=== PATIENT | male | born 1940 | race Caucasian/White ===

== ENCOUNTER 2020-06-13 08:35 | Outpatient (CLI) | payer MEDICARE, SELFPAY ==
--- NOTE | ~2020-06-13 | XR_ITS ---
EXAMINATION: XR foot LT 2V, XR foot RT min 3V DATE: 06/13/2020 09:45 INDICATION: Rheumatoid arthritis TECHNIQUE: 1. Dorsoplantar and lateral views of the left foot were obtained. 2. Dorsoplantar, 2 oblique and lateral views of the right foot were obtained. COMPARISON: None. FINDINGS: 30 degree hallux valgus at the left foot and 40 degree right hallux valgus. Bunions with hypertrophic and mild cystic change at the medial heads of both the left and right first metatarsals. Polyarticul ar osteoarthritis characterized by nonuniform joint space narrowing and/or marginal osteophytes which is of moderate severity at the bilateral first metatarsophalangeal, right fifth metatarsophalangeal joints and several of the bilateral interphalangeal joints. Additional mild polyarticular osteoarthri tis at many of the remaining joints in the bilateral mid and forefeet. No cortical erosions to sugges t inflammatory arthritis such as rheumatoid. Small left Achilles calcaneal spur. IMPRESSION: 1. Bilateral hallux valgus with bunions. 2. 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 Reviewed, dictated and finalized at location A. PLASTIC SURGERY IMPRESSION: 1. Bilateral hallux valgus with bunions. 2. 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
--- NOTE | ~2020-06-13 | XR_ITS ---
EXAMINATION: XR hand LT 2V DATE: 06/13/2020 09:45 INDICATION: Rheumatoid arthritis, unspecified. TECHNIQUE: 3 views of left hand were obtained. COMPARISON: None. FINDINGS: There is flexion of the metacarpophalangeal joints on all views. There is hyperextension of fourth and fifth proximal interphalangeal joints. There is severe osteoarthritis of distal radioulna r joint. Distal ulna abuts lunate, consistent with ulnolunate abutment syndrome. There is severe oste oarthritis of lunate-capitate joint. There is mild osteoarthritis of triscaphe joint and first carpom etacarpal joint. There is mild osteoarthritis of many of the metacarpophalangeal joints and interphal angeal joints. There are no bone erosions. IMPRESSION: 1. Hyperextension of the fourth and fifth proximal interphalangeal joints. 2. Polyarticular osteoarthritis. Reviewed, dictated and finalized at location A. [employer]
--- NOTE | ~2020-06-13 | XR_ITS ---
EXAMINATION: XR hand RT min 3V DATE: 06/13/2020 09:45 INDICATION: Rheumatoid arthritis, unspecified, contracted joints. TECHNIQUE: 3 views of right hand were obtained. COMPARISON: None. FINDINGS: There is hyperextension of fourth and fifth distal interphalangeal joints with flexion of t he proximal interphalangeal joints (boutonniere deformities). No fracture. There is mild osteoarthrit is of distal radioulnar joint and some of the metacarpophalangeal joints and interphalangeal joints. There is moderate osteoarthritis of second distal interphalangeal joint and severe osteoarthritis of third distal interphalangeal joint. Bone erosions are not identified. IMPRESSION: 1. 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 2. Polyarticular osteoarthritis. Reviewed, dictated and finalized at location A. 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
[2020-06-13 09:22] LABS: Basophils Absolute Auto 0.1 K/mm3 (0.0-0.1); Basophils Percent Auto 0.7 % (0.2-1.2); Eosinophils Absolute Auto 0.3 K/mm3 (0-0.3); Eosinophils Percent Auto 3.5 % (0-4.4); Hematocrit 43.3 % (42.0-52.0); Hemoglobin 14.6 g/dL (14.0-18.0); Immature Granulocyte Absolute 0.01 K/mm3 (0.00-0.031); Immature Granulocyte Percent A 0.1 % (0-0.5); Lymphocytes Absolute Auto 2.76 K/mm3 (0.9-3.2); Lymphocytes Percent Auto 37.1 % (18.3-44.2); Mean Corpuscular HGB Conc 33.7 g/dl (32-36); Mean Corpuscular Hemoglobin 34.4 pg (26-34); Mean Corpuscular Volume 102.1 fl (80-100); Mean Platelet Volume 10.9 fl (7.4-10.4); Monocytes Absolute Auto 0.6 K/mm3 (0.1-0.6); Monocytes Percent Auto 7.7 % (2.6-8.5); Neutrophils Absolute Auto 3.8 K/mm3 (1.3-6.7); Neutrophils Percent Auto 50.9 % (45.5-73.1); Platelet Count Result 146 k/mm3 (150-375); Red Blood Count 4.24 M/mm3 (4.6-6.20); Red Cell Distribution Width 12.9 % (11.5-14.5); White Blood Count 7.4 K/mm3 (4.5-10.0)
[2020-06-13 09:24] LABS: Add Urine Microscopic? NO; Appearance Urine Clear (Clear); Bilirubin Urine Negative (Negative); Blood Urine Negative (Negative); Color Urine Yellow (Yellow); Glucose Urine UA Negative (Negative); Ketones Urine Negative (Negative); Leukocyte Esterase Ur Negative LEU/UL (Negative); Nitrate Urine Negative (Negative); Protein Urine Negative (Negative); Specific Grav Ur 1.013 (1.001-1.035); Urobilinogen Urine Negative mg/dL (<2.0)
[2020-06-13 09:36] LABS: Alanine Aminotransferase 9 U/L (4-50); Alkaline Phosphatase 67 U/L (38-126); Anion Gap 3 mmol/L (8-16); Aspartate Amino Transferase 20 U/L (17-59); Bilirubin,Total 0.4 mg/dL (0.2-1.3); Blood Urea Nitrogen 14 mg/dL (9-20); CRP < 0.5 mg/dL (<1.0); Calcium 9.4 mg/dL (8.4-10.2); Carbon Dioxide 34 mmol/L (22-30); Chloride 100 mmol/L (98-107); Estimated Glomerular Filt Rate > 60; Glucose 98 mg/dL (75-110); Potassium 4.3 mmol/L (3.4-5.0); Sodium 137 mmol/L (137-145)
[2020-06-13 10:07] LABS: Erythrocyte Sedimentation Rate 20 mm/hr (0-20)
[2020-06-16 21:56] LABS: NIL 0.03 IU/mL; Quantiferon TB Plus, 1T NEGATIVE (NEGATIVE)
== END 2020-06-13 08:36 | disposition home or self-care (01) ==
PROVIDERS: Visit Provider Internal Medicine
DX: M06.9 Rheumatoid arthritis, unspecified (principal); Z79.899 Other long term (current) drug therapy; M20.11 Hallux valgus (acquired), right foot; M20.12 Hallux valgus (acquired), left foot; M19.071 Primary osteoarthritis, right ankle and foot; M19.072 Primary osteoarthritis, left ankle and foot; M19.041 Primary osteoarthritis, right hand; M19.042 Primary osteoarthritis, left hand
CPT/HCPCS: 36415; 73120; 73130; 73620; 73630; 80053; 81003; 85025; 85652; 86140; 86480

== ENCOUNTER → 2021-01-17 09:46 | Outpatient (CLI) | payer MEDICARE, SELFPAY ==
--- NOTE | ~2021-01-17 | XR_ITS ---
EXAMINATION: XR chest 2V 01/17/2021 10:01 INDICATION: Cough PROCEDURE: 2 view chest COMPARISON: No prior studies for comparison. FINDINGS: The lungs are clear. The cardiomediastinal silhouette is within normal limits. Small left pleural effusion. There is no pneumothorax suspected. IMPRESSION: 1: Small left pleural effusion. Reviewed, dictated and finalized at location B.
== END ==
DX: M05.79 Rheumatoid arthritis with rheumatoid factor of multiple sites without organ or systems involvement (principal); Z79.899 Other long term (current) drug therapy; R05 Cough; J90 Pleural effusion, not elsewhere classified
CPT/HCPCS: 71046

== ENCOUNTER → 2022-12-25 09:47 | Outpatient (CLI) | payer MEDICARE, SELFPAY ==
--- NOTE | ~2022-12-25 | MMUS_ITS ---
EXAMINATION: MM diagnostic zenon RT w nikos, US breast BI limited HISTORY: Nipple pain. TECHNIQUE: Additional 3-D tomosynthesis images of the right breast were performed and synthetic 2-D i mages were generated. CAD analysis was submitted and interpreted. High resolution limited bilateral b reast ultrasound was performed. COMPARISON: None BREAST PARENCHYMAL COMPOSITION: Breast composed of scattered areas of fibroglandular density FINDINGS: MAMMOGRAPHIC FINDINGS: There is bilateral asymmetric gynecomastia, right greater than left. No discrete mass, suspicious amber cifications or architectural distortion in either breast. ULTRASOUND: Limited bilateral breast ultrasound: There are bilateral subareolar breast buds, right greater than l eft. No discrete mass or cyst. IMPRESSION: 1. No evidence for malignancy. Benign bilateral asymmetric gynecomastia. Recommend follow-up clinical management. BI-RADS CATEGORY 2 - BENIGN FINDINGS Reviewed, dictated and finalized at location L. IMPRESSION: 1. No evidence for malignancy. Benign bilateral asymmetric gynecomastia. Recomm end follow-up clinical management. BI-RADS CATEGORY 2 - BENIGN FINDINGS
== END ==
PROVIDERS: PCP Student in an Organized Health Care Education/Training Program; Visit Provider Student in an Organized Health Care Education/Training Program
DX: N64.4 Mastodynia (principal)
CPT/HCPCS: 76642; 77061; 77065; G0279